=== PATIENT | male | born 1945 | race Caucasian/White ===

== ENCOUNTER → 2016-10-06 | Outpatient (CLI) | payer MEDICARE, OTHER ==
--- NOTE | ~2016-10-06 | NDGEN ---
PATIENT'S NAME: RONAK DELGADO [facility] AGE: 71 Y [address] ROOM: [place] [id number] LOCATION: [facility] ADMIT DATE: 10/06/2016 Neurodiagnostics DISCHARGE DATE: FAMILY PHYSICIAN: Tony Garcia MD ATTENDING PHYSICIAN: Tony Garcia DATE OF PROCEDURE: 10/06/2016 PROCEDURE: Nerve conduction and EMG of the bilateral lower extremities. HISTORY: This is a 71-year-old male patient, who has multiple medical issues mostly cardiac related. He has some bilateral lower extremity pitting edema at the ankles. He describes some pain at the ball of his right foot. At that area, there is no tenderness to the touch. He has excellent power on dorsiflexion, plantar flexion, eversion, and inversion of the foot. Also, he has good extension and flexion power of the toes. He has otherwise good sensation that is symmetric on the both sides. DESCRIPTION: Nerve conduction studies were performed in the bilateral lower extremities to rule out any evidence of a neuropathy and needle EMG was further added. There were slightly lower amplitudes in the right peroneal nerve, but normal motor onset latencies and normal conduction velocities was seen in both the peroneal and tibial motor nerves. There was slightly low amplitude in the right peroneal nerve, I believe, is nonsignificant as this was likely due to some local pitting edema which limited the amplitude. This did not represent a local axonal neuropathy and the nerve conduction velocities were completely normal. Sensory nerve conduction studies were done in the sural nerve and usually for a person of his age, those would be likely absent. These were present and had normal peak onset latencies and normal nerve conduction velocities. Next, a needle EMG was placed into the muscles of the lower extremity, particularly the tibialis anterior and the gastrocnemius muscles. These muscles revealed normal recruitment of motor unit action potentials, and no evidence of any fibrillation potentials or positive sharp waves. Therefore, there was no evidence to support a focal neuropathy or at least an L5-S1 radiculopathy to explain the patient's symptoms. IMPRESSION: This is essentially a normal nerve conduction study of the PATIENT'S NAME: RONAK DELGADO [facility] AGE: 71 Y [address] ROOM: [place] [id number] LOCATION: [facility] ADMIT DATE: 10/06/2016 Neurodiagnostics DISCHARGE DATE: FAMILY PHYSICIAN: Tony Garcia MD ATTENDING PHYSICIAN: Tony Garcia bilateral lower extremities. Slightly lower amplitudes on the right peroneal nerve was likely technically based on some more edema into the ankle on that side. Otherwise nerve conduction velocities were all normal throughout all the nerves and amplitudes were otherwise normal. Sensory nerve conduction studies were all normal. MD ESTEPHANAI VILLALBA/jordin /[id number] dtt: 10/11/16 1142 , SABINO HANSEN dtd: 10/06/16 1729
== END | disposition disaster alternative care site (69) ==
LOC: GNEU 14:29
DX: R20.8 Other disturbances of skin sensation (principal)